=== PATIENT | female | born 1980 | race Caucasian/White ===

== ENCOUNTER 2016-06-12 11:20 | Emergency (ER) | payer MEDICAID ==
[2013-11-12 13:48] VITALS: BMI 30.7
[~2016-06-12 11:20] MED LIST: ADVAIR 250/501 DISK INH; ALEVE220 MG PO; ANSAID; NASONEX NASAL S17 GM NS; PEPCID20 MG PO; PROAIR HFA8.5 GM INH; SINGULAIR10 MG PO; ZYRTEC10 MG PO
== END 2016-06-12 11:47 | disposition left against medical advice (07) ==
LOC: D.ER 11:20
DX: Z02.9 Encounter for administrative examinations, unspecified (principal)

== ENCOUNTER 2018-07-29 08:49 | Emergency (ER) | payer OTHER ==
[~2018-07-29] VITALS: Ht 149.9 cm; Wt 60.9 kg
[2018-07-29 09:00] VITALS: Ht 149.9 cm; Wt 60.9 kg
[2018-07-29] MEDS ORDERED: SKELAXIN800 MG PO (09:25)
[2018-07-29] MEDS ORDERED: IBUPROFEN800 MG PO (09:25)
[2018-07-29 09:51] VITALS: BP 109/75
== END 2018-07-29 09:52 | disposition home or self-care (01) ==
LOC: D.ER 08:49
DX: S29.012A Strain of muscle and tendon of back wall of thorax, initial encounter (principal); X50.9XXA Other and unspecified overexertion or strenuous movements or postures, initial encounter; Y93.9 Activity, unspecified

== ENCOUNTER 2018-12-29 11:55 | Emergency (ER) | payer OTHER ==
[~2018-12-29] VITALS: Ht 149.9 cm; Wt 53.2 kg
[~2018-12-29 11:55] MED LIST changes: +IBUPROFEN800 MG PO; +SKELAXIN800 MG PO
[2018-12-29 12:02] VITALS: Ht 149.9 cm; Wt 53.2 kg
[2018-12-29] MEDS ORDERED: CELEXA40 MG PO (12:03)
[2018-12-29] MEDS ORDERED: ULTRAM50 MG PO (13:22)
[2018-12-29] MEDS ORDERED: AMOXICILLIN875 MG PO (13:22)
[2018-12-29 14:18] VITALS: BP 120/77
== END 2018-12-29 14:18 | disposition home or self-care (01) ==
LOC: D.ER 11:55
DX: H72.91 Unspecified perforation of tympanic membrane, right ear (principal); H66.91 Otitis media, unspecified, right ear

== ENCOUNTER 2019-01-16 15:35 | Emergency (ER) | payer OTHER ==
[~2019-01-16] VITALS: Ht 149.9 cm; Wt 51.8 kg
[~2019-01-16 15:35] MED LIST changes: +AMOXICILLIN875 MG PO; +CELEXA40 MG PO; +ULTRAM50 MG PO
[2019-01-16 15:40] VITALS: Ht 149.9 cm; Wt 51.8 kg
[2019-01-16] MEDS ORDERED: TORADOL10 MG PO (16:26)
[2019-01-16] MEDS ORDERED: CIPRODEX OTIC7.5 ML RIGHT EAR (16:26)
[2019-01-16 17:20] VITALS: BP 140/88
== END 2019-01-16 17:22 | disposition home or self-care (01) ==
LOC: D.ER 15:35
DX: H60.91 Unspecified otitis externa, right ear (principal)

== ENCOUNTER 2019-05-18 09:13 | Emergency (ER) | payer OTHER ==
[~2019-05-18] VITALS: Ht 149.9 cm; Wt 51.4 kg
[~2019-05-18 09:13] MED LIST changes: +CIPRODEX OTIC7.5 ML RIGHT EAR; +TORADOL10 MG PO
[2019-05-18 09:17] VITALS: Ht 149.9 cm; Wt 51.4 kg
[2019-05-18] MEDS ORDERED: HYDROCODON-ACE1 EAC7 PO (09:54)
[2019-05-18] MEDS ORDERED: AMOXICILLIN500 M1 PO (09:54)
[2019-05-18] MEDS ORDERED: CYMBALTA30 MG PO (09:54)
[2019-05-18] MEDS ORDERED: XANAX0.5 MG PO (09:54)
[2019-05-18 10:10] VITALS: BP 118/62
== END 2019-05-18 10:13 | disposition home or self-care (01) ==
LOC: D.ER 09:13
DX: M27.3 Alveolitis of jaws (principal); F32.9 Major depressive disorder, single episode, unspecified; F43.10 Post-traumatic stress disorder, unspecified; J45.909 Unspecified asthma, uncomplicated

== ENCOUNTER 2019-07-26 08:11 | Emergency (ER) | payer MEDICAID ==
[~2019-07-26] VITALS: Ht 149.9 cm; Wt 50.9 kg
[~2019-07-26 08:11] MED LIST changes: +AMOXICILLIN500 M1 PO; +CYMBALTA30 MG PO; +HYDROCODON-ACE1 EAC7 PO; +XANAX0.5 MG PO
[2019-07-26 08:17] VITALS: Ht 149.9 cm; Wt 50.9 kg
[2019-07-26 08:34] LABS: BILIRUBIN NEGATIVE (NEGATIVE); GLUCOSE NEGATIVE (NEGATIVE); KETONE NEGATIVE (NEGATIVE); NITRITE NEGATIVE (NEGATIVE); SPECIFIC GRAVITY 1.025 (1.005-1.020); UROBILINOGEN NORMAL (NORMAL)
[2019-07-26 08:42] LABS: RED CELLS - URINE 0-5 /hpf (0-5); WHITE CELLS - URINE 0-5 /hpf (NEGATIVE)
[2019-07-26 08:43] LABS: BACTERIA FEW /hpf (NEGATIVE); EPITHELIAL CELLS 0-5 /hpf (0-5)
[2019-07-26] MEDS ORDERED: TORADOL10 MG PO (09:47)
[2019-07-26 10:02] VITALS: BP 135/82
== END 2019-07-26 10:05 | disposition home or self-care (01) ==
LOC: D.ER 08:11
PROVIDERS: Emergency Medicine
DX: R10.9 Unspecified abdominal pain (principal)

== ENCOUNTER 2019-08-17 08:00 | Emergency (ER) | payer MEDICAID ==
[~2019-08-17] VITALS: Ht 149.9 cm; Wt 56.8 kg
[2019-08-17 08:03] VITALS: Ht 149.9 cm; Wt 56.8 kg
[2019-08-17 08:21] LABS: BASOPHILS 0.6 % (0-2); EOSINOPHILS 2.8 % (0-7); HEMATOCRIT 40.8 % (36.0-48.0); HEMOGLOBIN 13.4 g/dL (12-16); IMMATURE GRANULOCYTES 0.3 % (0-5); LYMPHOCYTES 28.1 % (15-50); MCH 29.5 pg (26.0-34.0); MCHC 32.8 g/dL (31.0-37.0); MCV 89.9 fL (80.0-100.0); MEAN PLATELET VOLUME 10.9 fL (7.4-10.4); MONOCYTES 9.6 % (2-11); NEUTROPHILS 58.6 % (40-80); PLATELET COUNT 355 10x3/uL (130-400); RBC 4.54 10x6/uL (4.00-5.40); RDW 13.3 % (11.5-14.5); WBC 6.5 10x3/uL (4.8-10.8)
[2019-08-17 08:23] LABS: BACTERIA FEW /hpf (NEGATIVE); BILIRUBIN NEGATIVE (NEGATIVE); GLUCOSE NEGATIVE (NEGATIVE); KETONE NEGATIVE (NEGATIVE); NITRITE NEGATIVE (NEGATIVE); SPECIFIC GRAVITY 1.025 (1.005-1.020); UROBILINOGEN NORMAL (NORMAL); WHITE CELLS - URINE OCC /hpf (NEGATIVE)
[2019-08-17 08:33] LABS: ANION GAP 11.1 mmol/L (8-16); CARBON DIOXIDE 29.4 mmol/L (21.0-32.0); CREATININE - SERUM 0.9 mg/dL (0.6-1.3); POTASSIUM - SERUM 3.5 mmol/L (3.5-5.1)
[2019-08-17 08:41] LABS: ALBUMIN 3.7 g/dL (3.4-5.0); BILIRUBIN - TOTAL 0.26 mg/dL (0.2-1.3); PROTEIN - SERUM 7.6 g/dL (6.4-8.2)
[2019-08-17] MEDS ORDERED: CIPRO500 MG PO (09:22)
[2019-08-17] MEDS ORDERED: TORADOL10 MG PO (09:22)
[2019-08-17] MEDS ORDERED: HYDROCODON-ACE1 EAC7 PO (09:28)
[2019-08-17 09:53] VITALS: BP 124/76
== END 2019-08-17 09:54 | disposition home or self-care (01) ==
LOC: D.ER 08:00
PROVIDERS: Emergency Medicine
DX: N20.1 Calculus of ureter (principal); R31.9 Hematuria, unspecified; J45.909 Unspecified asthma, uncomplicated

== ENCOUNTER 2019-10-28 22:21 | Emergency (ER) | payer MEDICAID ==
[~2019-10-28] VITALS: Ht 149.9 cm; Wt 52.3 kg
[~2019-10-28 22:21] MED LIST changes: +CIPRO500 MG PO
[2019-10-28 22:28] VITALS: BP 117/69; Ht 149.9 cm; Wt 52.3 kg
[2019-10-28] MEDS ORDERED: CELEXA40 MG PO (22:33)
[2019-10-28] MEDS ORDERED: BUSPAR5 MG PO (22:33)
[2019-10-28 23:25] LABS: UDS - AMPHET NEGATIVE QUAL (NEGATIVE); UDS - BARB NEGATIVE QUAL (NEGATIVE); UDS - BENZO NEGATIVE QUAL (NEGATIVE); UDS - COCAINE NEGATIVE QUAL (NEGATIVE); UDS - OPIATE NEGATIVE QUAL (NEGATIVE); UDS - PCP NEGATIVE QUAL (NEGATIVE); UDS - THC NEGATIVE QUAL (NEGATIVE)
[2019-10-28 23:27] LABS: BILIRUBIN NEGATIVE (NEGATIVE); GLUCOSE NEGATIVE (NEGATIVE); KETONE NEGATIVE (NEGATIVE); NITRITE POSITIVE (NEGATIVE); SPECIFIC GRAVITY 1.015 (1.005-1.020); UROBILINOGEN NORMAL (NORMAL)
[2019-10-28 23:29] LABS: BACTERIA FEW /hpf (NEGATIVE); EPITHELIAL CELLS 0-5 /hpf (0-5); RED CELLS - URINE 0-5 /hpf (0-5); WHITE CELLS - URINE 0-5 /hpf (NEGATIVE)
[2019-10-28] MEDS ORDERED: DETROL LA2 MG PO (23:30)
[2019-10-28] MEDS ORDERED: MACROBID100 MG PO (23:35)
== END 2019-10-28 23:54 | disposition home or self-care (01) ==
LOC: D.ER 22:21
PROVIDERS: Family Medicine
DX: N30.10 Interstitial cystitis (chronic) without hematuria (principal); N39.0 Urinary tract infection, site not specified; J45.909 Unspecified asthma, uncomplicated; R10.2 Pelvic and perineal pain; R30.0 Dysuria

== ENCOUNTER 2019-11-11 01:47 | Emergency (ER) | payer SELFPAY ==
[~2019-11-11] VITALS: Ht 149.9 cm; Wt 52.3 kg
[~2019-11-11 01:47] MED LIST changes: +BUSPAR5 MG PO; +DETROL LA2 MG PO; +MACROBID100 MG PO
[2019-11-11 01:55] VITALS: Ht 149.9 cm; Wt 52.3 kg
[2019-11-11 02:46] LABS: BASOPHILS 0.4 % (0-2); EOSINOPHILS 1.7 % (0-7); HEMOGLOBIN 12.1 g/dL (12-16); IMMATURE GRANULOCYTES 0.4 % (0-5); LYMPHOCYTES 27.1 % (15-50); MCH 29.3 pg (26.0-34.0); MCHC 32.7 g/dL (31.0-37.0); MCV 89.6 fL (80.0-100.0); MEAN PLATELET VOLUME 11.2 fL (7.4-10.4); MONOCYTES 9.1 % (2-11); NEUTROPHILS 61.3 % (40-80); PLATELET COUNT 375 10x3/uL (130-400); RBC 4.13 10x6/uL (4.00-5.40); RDW 13.4 % (11.5-14.5); WBC 10.3 10x3/uL (4.8-10.8)
[2019-11-11 02:47] LABS: BILIRUBIN NEGATIVE (NEGATIVE); GLUCOSE NEGATIVE (NEGATIVE); KETONE NEGATIVE (NEGATIVE); NITRITE NEGATIVE (NEGATIVE); UROBILINOGEN NORMAL (NORMAL)
[2019-11-11 02:53] LABS: ANION GAP 9.1 mmol/L (8-16); CALCIUM 8.3 mg/dL (8.5-10.1); CARBON DIOXIDE 29.1 mmol/L (21.0-32.0); CREATININE - SERUM 0.9 mg/dL (0.6-1.3); POTASSIUM - SERUM 3.2 mmol/L (3.5-5.1)
[2019-11-11 02:58] LABS: UDS - AMPHET NEGATIVE QUAL (NEGATIVE); UDS - BARB NEGATIVE QUAL (NEGATIVE); UDS - BENZO NEGATIVE QUAL (NEGATIVE); UDS - COCAINE NEGATIVE QUAL (NEGATIVE); UDS - OPIATE POSITIVE QUAL (NEGATIVE); UDS - PCP NEGATIVE QUAL (NEGATIVE); UDS - THC NEGATIVE QUAL (NEGATIVE)
[2019-11-11 02:58] LABS: ALBUMIN 3.7 g/dL (3.4-5.0); BILIRUBIN - TOTAL 0.16 mg/dL (0.2-1.3); C-REACTIVE PROTEIN 0.9 mg/dL (0.0-0.9); PROTEIN - SERUM 7.1 g/dL (6.4-8.2)
[2019-11-11 03:08] VITALS: BP 195/84
[2019-11-11 03:46] LABS: ERYTHROCYTE SEDIMENTATION RATE 9 mm/hr (0-20)
[2019-11-11] MEDS ORDERED: NEURONTIN 300300 MG PO (03:58)
== END 2019-11-11 02:59 | disposition home or self-care (01) ==
LOC: D.ER 01:47
PROVIDERS: Family Medicine
DX: L29.9 Pruritus, unspecified (principal); F19.939 Other psychoactive substance use, unspecified with withdrawal, unspecified; N83.209 Unspecified ovarian cyst, unspecified side; J45.909 Unspecified asthma, uncomplicated; R10.9 Unspecified abdominal pain; R31.9 Hematuria, unspecified